=== PATIENT | male | born 1950 | race Caucasian/White ===

== ENCOUNTER 2023-06-27 11:13 | Emergency (ER) | payer MEDICARE, OTHER, SELFPAY ==
[2023-06-27 11:20] VITALS: BP 166/72; BMI 26.1
[2023-06-27] MEDS: NORCO 5/325 1 TABLET PO (13:05)
--- NOTE | 2023-06-27 13:12 | ED.MUSCINJ ---
HPI-Injury
General
Chief Complaint: Fall
Source: patient
Exam Limitations: none
Time Seen by Provider: 06/27/23 12:07
Nursing documentation reviewed up to this point in time: agreed with
Travel History
Have you had any contact with someone who has COVID-19?: No
Do you have any symptoms of coronavirus? Fever > 100 degrees, chills, cough, shortness of breath, sore throat, loss of taste or smell, muscle aches, or headache?: No
History of Present Illness-Injury
Is this injury a work related problem?: No
Is pt an associate of [facility]?: No
Initial Injury comments:
Patient to ED s/p fall. States he was carrying groceries up stairs and fell back. Hit head on driveway. No LOC. Complains of pain to his right shoulder and wrist. Able to get self up and ambulate into home. Brought to ED by family for eval.
Injury occurred just GERIATRIC AIDE
Past History
Past History
ED Past Medical History: Hypercholesterolemia and NIDDM
Review of Systems
Review of Systems
Allergies reviewed?: Yes
All Other Systems: ROS reviewed and negative except as documented in HPI and ROS
Constitutional: Reports no symptoms
EENT: Reports no symptoms
Respiratory: Reports no symptoms
Cardiac: Reports no symptoms
ABD/GI: Reports no symptoms
Musculoskeletal: Reports joint pain (Pain to right shoulder, right wrist.)
Skin: Reports no symptoms
Neurological: Reports no symptoms
Psychiatric: Reports no symptoms
Musculoskeletal Injury Exam
Musculoskeletal Injury Exam
Right Shoulder:
Pain with Movement?: Moderate
Tender to palpation?: Moderate
Soft tissue swelling?: Moderate
External deformity and angulation?: None
Joint effusion?: None
Contusion?: Moderate
Hematoma-local bleeding into tissue?: Moderate
Strain- Sprain- Tear (Connective tissue injury)?: Moderate
Crepitus with movement?: No
Joint instability?: No
Malalignment/deformity?: No
Range of motion: Limited
Distal skin color and temperature: normal-warm & good color
Capillary Refill: normal
Normal distal neurovascular exam?: Yes
Peripheral Pulses: radial (right): 3+
Right Wrist:
Pain with Movement?: Moderate
Tender to palpation?: Moderate
Soft tissue swelling?: None
External deformity and angulation?: None
Joint effusion?: None
Contusion?: None
Hematoma-local bleeding into tissue?: None
Strain- Sprain- Tear (Connective tissue injury)?: Moderate
Crepitus with movement?: No
Joint instability?: No
Malalignment/deformity?: No
Range of motion: Limited
Distal skin color and temperature: normal-warm & good color
Capillary Refill: normal
Normal distal neurovascular exam?: Yes
Phy Exam
General Physical Exam
General Presentation: well appearing and mild distress
General age: appears stated age
General Skin: warm and dry
General Habitus: normal
General Mental: alert
General Hydration: appears well hydrated
Neurological Exam
Neurological Exam: alert, oriented x3, CN II-XII intact, no motor deficits, no sensory deficits and speech normal
Angella Coma Scale
Eye Opening: Spontaneous
Verbal Response: Oriented
Motor Response: Obeys Commands
GCS Total Score: 15
Musculoskeletal Exam
Musculoskeletal Exam: neuro vasc intact
Skin Exam
Skin Exam: normal color, warm/dry and no rash
Psychiatric Exam
Psychiatric Exam: normal mood/affect
Injury Course
Orders/Labs/Results
Orders:
Orders
06/27/23 12:11
Shoulder, Right, Trauma [CR Shoulder, Trauma - Right] Urgent
Comment:
Reason For Exam: pain and deformity after a fall
06/27/23 12:14
Wrist, Right 3 Views [CR Wrist - Right Min 3 Views] Urgent
Comment:
Reason For Exam: pain after a fall
06/27/23 12:59
Sling Right-Treatment ONCE
Hydrocodone 5/APAP 325 [[place] 5/325] 1 tablet PO NOW STA
*Radiology
Radiology exam reviewed: radiology read reviewed
*Pulse Oximetry
Patient hypoxic: no
*Critical Care Note
Total Time (30-74mins, 75-104mins- exclusive of procedures): Not Applicable
ED Attending Note
-
Portions of this chart may have been created with voice recognition software.� Occasional wrong word or��sound alike� substitutions may have occurred due to the inherent limitations of voice recognition software.
Discharge Plan
Departure
Patient Disposition: Home (Routine Discharge)
Date of Disposition: 06/27/23
Time of Disposition: 13:00
Patient with high blood pressure during this ER visit?: No
Condition: Good
Covid-19: Not Applicable
Discharge Problem:
Contusion of right shoulder, Right wrist sprain
Instructions: Contusion (DC), Preventing falls in adults, Shoulder Sprain (DC), Using Cold for Pain
Prescriptions:
New
hydrocodone-acetaminophen 5-325 mg tablet
1 tab PO Q4H PRN (Reason: Pain) Qty: 14 0RF
Referrals:
Miguel Vallejo MD [Family Provider] -
Jak Ralph MD [Active] - Call in 1-3 days for appt
Interventions
Interventions:
*Risk Screen - Suicide Last Done: 06/27/23 11:20
*Neglect/Abuse Screening Last Done: 06/27/23 11:20
ED- Fall Risk Assessment Last Done: 06/27/23 12:40
*ED COVID-19 Vaccine History Last Done: 06/27/23 11:20
ED-Musculoskeletal Assessment Last Done: 06/27/23 12:40
ED- Neurological Assessment Last Done: 06/27/23 12:40
ED-Skin Assessment Last Done: 06/27/23 12:40
Discharge Date and Time
Print Language: BERMUDIAN
== END 2023-06-27 13:35 | disposition home or self-care (01) ==
LOC: EMR 11:13
PROVIDERS: EMERGENCY PHYSICIAN Emergency Medicine; FAMILY PHYSICIAN Family Medicine
DX: S40.011A Contusion of right shoulder, initial encounter (principal); S63.501A Unspecified sprain of right wrist, initial encounter; W10.9XXA Fall (on) (from) unspecified stairs and steps, initial encounter; E78.00 Pure hypercholesterolemia, unspecified; E11.9 Type 2 diabetes mellitus without complications; Z88.6 Allergy status to analgesic agent; Z88.8 Allergy status to other drugs, medicaments and biological substances; Z91.048 Other nonmedicinal substance allergy status
CPT/HCPCS: 99284; 73030; 73110

== ENCOUNTER → 2023-08-10 06:12 | Day surgery (SDC) | payer MEDICARE, OTHER, SELFPAY ==
--- NOTE | 2023-08-07 06:50 | CM ---
Patient is scheduled for an elective R TSA on - he is a same day patient. Spoke with patient and his prior to surgery. Introduced role of Orthopedic Navigator. Patient and his live in a two story home. They live on the first floor and
their daughter lives on the second. Currently he functions independently. He does not use any DME and has never had VN services.
Discussed orthopedic program and post surgical plans. Patient will return home when directed by surgeon. Reviewed MD follow up and transition to outpatient therapy. Patient is in agreement with tentative plan and states that his son will be with him
on the day of surgery and then his will be home with him and can assist if needed.
Plan: Orthopedic Navigator will be involved in the care of patient after surgery and will reassess discharge needs at that time.
[2023-08-07 12:11] VITALS: BMI 25.4
[2023-08-07 13:47] LABS: Hemoglobin 11.9 g/dL (13.0-18.0); Mean Corpuscular Hgb 29.9 pg (27.0-31.0); Mean Corpuscular Volume 87.9 fL (80.0-94.0); Platelet Count 226 10^3/uL (130-400); Red Blood Cell Count 3.98 10^6/uL (4.70-6.10); Red Cell Dist. Width 13.1 % (11.5-14.5); White Blood Cell Count 5.1 10^3/uL (4.8-10.8)
[2023-08-07 14:32] LABS: Glycohemoglobin (HgbA1c) 7.1 % (4.0-5.6)
[2023-08-07 15:05] LABS: ALT (SGPT) 23 U/L (0-50); AST (SGOT) 27 U/L (17-59); Albumin 4.6 g/dl (3.5-5.0); Alkaline Phosphatase 112 U/L (38-126); Blood Urea Nitrogen 29 mg/dl (9-20); Calcium 9.7 mg/dl (8.4-10.2); Carbon Dioxide 26 mmol/L (22-30); Chloride 101 mmol/L (98-107); Estimated Creatinine Clearance 32 ml/min; Glucose 108 mg/dl (70-99); Potassium 4.6 mmol/L (3.5-5.1); Sodium 139 mmol/L (135-145); Total Bilirubin 0.5 mg/dl (0.2-1.3); Total Protein 7.4 g/dl (6.3-8.2)
--- NOTE | 2023-08-07 16:10 | PTCARENOTE ---
Hgb 11.9, GFR 39.5, creatinine 1.8 and hgb A1c 7.1 were all collected today; was notified of all results.
[2023-08-10] VITALS (7 sets, daily range): BP systolic 105–153; BP diastolic 63–78; BMI 25.4
[2023-08-10 06:59] LABS: Glucose - Point of Care 158 mg/dl (70-99)
[2023-08-10] MEDS: BACTROBAN NASAL 1 GRAM NASAL (07:05)
[2023-08-10] MEDS: NORMOSOL-R 1000 IV (07:06)
[2023-08-10 10:00] LABS: Glucose - Point of Care 136 mg/dl (70-99)
[2023-08-10] MEDS: ANCEF 5 IV (11:59)
== END ==
LOC: SDS 06:12
PROVIDERS: ATTENDING PHYSICIAN Orthopaedic Surgery Hand Surgery; FAMILY PHYSICIAN Family Medicine
DX: M12.811 Other specific arthropathies, not elsewhere classified, right shoulder (principal)
CPT/HCPCS: 23472; 36415; 73020; 80053; 82962; 83036; 85027; 86850; 86900; 86901; 87070; 93005; C1713; C1776

== ENCOUNTER 2024-07-20 10:04 | Emergency (ER) | payer MEDICARE, OTHER, SELFPAY ==
[2024-07-20 10:05] VITALS: BP 155/88
[2024-07-20 10:18] VITALS: BMI 25.6
--- NOTE | 2024-07-20 10:30 | ED.GENMED ---
History of Present Illness
General
Chief Complaint: Back Pain
Source: patient
Exam Limitations: none
Time Seen by Provider: 07/20/24 10:18
History of Present Illness
History of Present Illness:
74-year-old male presents complaining of ongoing right lower back pain over the past several weeks. It hurts to move or change positions. Does not radiate down his leg. No associated bowel or bladder dysfunction. No dysuria or hematuria. No
rash. He denies associated fever. No known injury. He has been using Lidoderm patches without relief. He has been taking Tylenol which seems to help however he was taking a gram every 4 hours and stopped taking this. He gets an angioedema
reaction to any NSAIDs. He is not anticoagulated. No other complaints
Past History
Past History
ED Past Medical History: Hypercholesterolemia and NIDDM
Phy Exam
Physical Exam
Physical Exam:
General: Well-appearing male no acute respiratory distress
HEENT: Normocephalic atraumatic
Heart: Regular rate and rhythm
Lungs: Clear no wheeze
Musculoskeletal exam mild tenderness over the right lumbosacral junction. Midline of the lumbar spine nontender good range of motion bilateral lower extremities
Vascular: 2+ DP pulse bilateral feet
Neurologic: Good sensation and strength to lower extremities
Course
Orders/Labs/Results
Orders:
Orders
07/20/24 10:29
CR Lumbar Spine 2 Or 3 Views Urgent
Comment:
Reason For Exam: back pain
07/20/24 10:30
Diazepam [Valium] 5 mg PO NOW STA
Vital Signs
Initial and Last Documented VS:
Initial Vital Signs
Temp Pulse Resp BP Pulse Ox
98.1 F 117 20 155/88 99
07/20/24 10:05 07/20/24 10:05 07/20/24 10:05 07/20/24 10:05 07/20/24 10:05
Last Documented Vital Signs
Temp Pulse Resp BP Pulse Ox
98.1 F 117 20 155/88 99
07/20/24 10:05 07/20/24 10:05 07/20/24 10:05 07/20/24 10:05 07/20/24 10:05
MDM/Problems Addressed
Differential Diagnosis Includes:
Low back pain. Consider muscular strain versus degenerative disc disease versus radiculopathy. No red flags to suggest cauda equina. No fever to suggest infectious source
X-rays pending. Patient cannot tolerate NSAIDs secondary to an angioedema reaction. Seems likely muscular. Will try muscle relaxer
*Critical Care Note
Total Time (30-74mins, 75-104mins- exclusive of procedures): Not Applicable
Update Note
Update Note:
X-rays consistent with degenerative disease with spondylolisthesis L2-L3. Patient has pain on the right side of his back that radiates slightly to the waist. Question radicular pain versus muscular pain. Will continue with muscle relaxers and a
steroid medicine at home will be referred to back pain specialist. No indication for admission. Stable for discharge
ED Attending Note
-
Portions of this chart may have been created with voice recognition software.� Occasional wrong word or��sound alike� substitutions may have occurred due to the inherent limitations of voice recognition software.
Discharge Plan
Departure
Patient Disposition: Home (Routine Discharge)
Date of Disposition: 07/20/24
Time of Disposition: 14:11
Patient with high blood pressure during this ER visit?: No
Discharge Problem:
Back pain
Instructions: Low Back Pain (DC)
Prescriptions:
New
diazepam [Valium] 5 mg tablet
5 mg PO BID PRN (Reason: muscle spasm) Qty: 10 0RF
prednisone 10 mg Tablet
See Rx Instructions .ROUTE .COMPLEX Qty: 30 0RF
Rx Instructions:
Take By Mouth:
40 mg daily x3 days, 30 mg daily x3 days,
20 mg daily x3 days, 10 mg daily x3 days.
No Action
atorvastatin 20 mg Tablet
20 mg PO HS
cyanocobalamin (vitamin B-12) [Vitamin B-12] 1,000 mcg Tablet
1,000 mcg PO MOTH
amlodipine 5 mg Tablet
5 mg PO DAILY
pramipexole 0.5 mg Tablet
0.5 mg PO HS
ferrous sulfate [Iron (ferrous sulfate)] 325 mg (65 mg iron) Tablet
325 mg PO MOWEFR
metformin 1,000 mg Tablet
1,000 mg PO BID
cholecalciferol (vitamin D3) [Vitamin D3] 125 mcg (5,000 unit) Tablet
125 mcg PO DAILY
gabapentin 600 mg Tablet Extended Release 24 Hr
600 mg PO DAILY
mupirocin 2 % ointment
1 applic intranasal BID Qty: 1 0RF
Referrals:
Miguel Vallejo MD [Family Provider] -
Carlos Zaldivar MD [Active] -
Activity Restrictions/Additional Instructions:
Continue with warm compresses. Take steroid and muscle relaxer as directed. Return if worse otherwise follow-up with back pain specialist
Interventions
Interventions:
*Risk Screen - Suicide Last Done: 07/20/24 10:21
*Neglect/Abuse Screening Last Done: 07/20/24 10:18
*ED- Fall Risk Assessment Last Done: 07/20/24 10:20
*ED COVID-19 Vaccine History Last Done: 07/20/24 10:20
ED-Musculoskeletal Assessment Last Done: 07/20/24 10:22
Discharge Date and Time
Print Language: GUATEMALAN
[2024-07-20] MEDS: VALIUM 5 MG PO (10:38)
== END 2024-07-20 14:30 | disposition home or self-care (01) ==
LOC: EMR 10:04
PROVIDERS: EMERGENCY PHYSICIAN Emergency Medicine; FAMILY PHYSICIAN Family Medicine
DX: M54.50 Low back pain, unspecified (principal); E11.9 Type 2 diabetes mellitus without complications; E78.00 Pure hypercholesterolemia, unspecified; M43.16 Spondylolisthesis, lumbar region; Z79.84 Long term (current) use of oral hypoglycemic drugs; Z88.6 Allergy status to analgesic agent; Z88.1 Allergy status to other antibiotic agents; Z88.2 Allergy status to sulfonamides; Z88.8 Allergy status to other drugs, medicaments and biological substances; Z91.048 Other nonmedicinal substance allergy status
CPT/HCPCS: 99283; 72100

== ENCOUNTER 2024-07-26 08:14 | Emergency (ER) | payer MEDICARE, OTHER, SELFPAY ==
[2024-07-26 08:36] VITALS: BP 145/86
--- NOTE | 2024-07-26 11:09 | ED.GENMED ---
History of Present Illness
General
Chief Complaint: Back Pain
Source: patient
Time Seen by Provider: 07/26/24 10:56
History of Present Illness
History of Present Illness:
74-year-old male presents to the emergency room complaining of continued pain in his right low back which radiates to his leg somewhat. Patient states that he began having pain fairly suddenly couple weeks ago. No specific injury. Pain seemed to
begin after he was hospitalized overnight at [facility] for 'dehydration'. Patient denies fever, chills, nausea, vomiting or diarrhea. He denies any bowel or bladder dysfunction. He has no weakness numbness or tingling in his legs. Patient states
he has difficulty walking because of pain particular when he stands. His legs do not give out from under him. Patient's been taking Tylenol for pain. He had angioedema with NSAIDs previously. He was prescribed Valium and a tapering course of
prednisone at his last visit. He is taking the prednisone. His insurance company did not approve Valium.
Past History
Past History
ED Past Medical History: Hypercholesterolemia and NIDDM
Phy Exam
Physical Exam
Physical Exam:
General: Awake, Alert, Oriented X3. No acute distress.
Vitals: unremarkable
Head: Atraumatic
Eyes: Pupils equal, EOMI
Throat: Airway intact, no exudates
Neck: Trachea midline
Lungs: Clear and equal b/l
Heart: Regular rate, no murmurs
Abd: Soft, Nontender, No pulsatile mass
Back: No pain to palpation or percussion along the thoracic or lumbar spine. There is tenderness palpation over the right sacroiliac region.
Neuro: Nonfocal
Skin: Warm, dry, no rash
Extremities: pulses equal b/l, no edema
Course
Orders/Labs/Results
Orders:
Orders
07/26/24 11:07
0.9% Sodium Chloride 1000 ml [Nss] 1,000 ml IV BOLUS
HYDROmorphone [Dilaudid] 0.5 mg IV NOW STA
07/26/24 11:41
CRP [C-Reactive Protein] Urgent
Complete Blood Count/With Diff Urgent
Comprehensive Metabolic Panel Urgent
Magnesium Urgent
Sed Rate [Erythrocyte Sed Rate] Urgent
07/26/24 12:38
Urinalysis Reflex To Culture Urgent
Date Specimen was Collected: 07/26/24
Time Specimen was Collected: 12:09
Urine Microscopic Reflex Cult Urgent
07/26/24 12:51
CT Abd/pelvis W Iv Cont Urgent
Comment:
Reason For Exam: back/right flank pain
Abnormal Lab Results
07/26/24 07/26/24
11:41 12:38
RBC 4.14 L 10^6/uL
(4.70-6.10)
Hgb 12.4 L g/dL
(13.0-18.0)
Hct 35.9 L %
(39.0-52.0)
Abs Immat Gran (auto) 0.1 H 10^3/uL
(0-0.05)
Absolute Neuts (auto) 9.1 H 10^3/uL
(1.4-6.5)
Absolute Lymphs (auto) 0.7 L 10^3/uL
(1.2-3.4)
Immature Gran % 1.0 H %
(0-0.5)
Neutrophils % 88.9 H %
(42.2-75.2)
Lymphocytes % 6.7 L %
(20.5-51.1)
ESR 32 H mm/hour
(0-20)
Potassium 5.2 H mmol/L
(3.5-5.1)
BUN 41 H mg/dl
(9-20)
Creatinine 1.7 H mg/dL
(0.7-1.3)
Glucose 275 H mg/dl
(70-99)
Urine Glucose 2+ A
(Negative)
Urine Albumin (Reflex) 1+ A
(Neg - Trace)
07/26/24 11:41
07/26/24 11:41
Vital Signs
Initial and Last Documented VS:
Initial Vital Signs
Temp Pulse Resp BP Pulse Ox
98.6 F 111 16 145/86 98
07/26/24 08:36 07/26/24 08:36 07/26/24 08:36 07/26/24 08:36 07/26/24 08:36
Last Documented Vital Signs
Temp Pulse Resp BP Pulse Ox
98.6 F 85 18 135/74 98
07/26/24 08:36 07/26/24 13:12 07/26/24 13:12 07/26/24 13:12 07/26/24 13:12
MDM/Problems Addressed
Differential Diagnosis Includes:
Lumbar sacral strain, sacroiliac irritation, lumbar sacral muscle spasm, zoster, kidney stone
MDM/Problems Addressed:
Patient presents with pain in his right low back actually more over the sacroiliac region. Pain is worse with movement. Labs show normal urinalysis, essentially normal CBC, patient has elevated BUN and creatinine but this is consistent with
previous measurements. Glucose elevated to 75. C-reactive protein is normal. Sed rate is consistent with his age. CT shows no acute intra-abdominal or spinal abnormalities. No indication for hospitalization. Patient feels better after IV
Dilaudid here. He cannot take NSAIDs and so we will discharge him with a prescription for oxycodone but encouraged him to follow-up with [facility] pain and spine.
*Radiology
Radiology exam reviewed: radiology read reviewed
*Pulse Oximetry
Patient hypoxic: no
*Critical Care Note
Total Time (30-74mins, 75-104mins- exclusive of procedures): Not Applicable
ED Attending Note
-
Portions of this chart may have been created with voice recognition software.� Occasional wrong word or��sound alike� substitutions may have occurred due to the inherent limitations of voice recognition software.
Discharge Plan
Departure
Patient Disposition: Home (Routine Discharge)
Date of Disposition: 07/26/24
Time of Disposition: 15:18
Patient with high blood pressure during this ER visit?: No
Condition: Good
Discharge Problem:
Back pain, Sacro-iliac pain
Instructions: Low Back Pain (DC)
Prescriptions:
New
oxycodone 5 mg tablet
5 mg PO Q6H PRN (Reason: Pain) Qty: 20 0RF
No Action
atorvastatin 20 mg Tablet
20 mg PO HS
cyanocobalamin (vitamin B-12) [Vitamin B-12] 1,000 mcg Tablet
1,000 mcg PO MOTH
amlodipine 5 mg Tablet
5 mg PO DAILY
pramipexole 0.5 mg Tablet
0.5 mg PO HS
ferrous sulfate [Iron (ferrous sulfate)] 325 mg (65 mg iron) Tablet
325 mg PO MOWEFR
metformin 1,000 mg Tablet
1,000 mg PO BID
cholecalciferol (vitamin D3) [Vitamin D3] 125 mcg (5,000 unit) Tablet
125 mcg PO DAILY
gabapentin 600 mg Tablet Extended Release 24 Hr
600 mg PO DAILY
mupirocin 2 % ointment
1 applic intranasal BID Qty: 1 0RF
diazepam [Valium] 5 mg tablet
5 mg PO BID PRN (Reason: muscle spasm) Qty: 10 0RF
prednisone 10 mg Tablet
See Rx Instructions .ROUTE .COMPLEX Qty: 30 0RF
Rx Instructions:
Take By Mouth:
40 mg daily x3 days, 30 mg daily x3 days,
20 mg daily x3 days, 10 mg daily x3 days.
Referrals:
Og Alfaro MD [Active] -
Miguel Vallejo MD [Family Provider] -
Interventions
Interventions:
*Risk Screen - Suicide Last Done: 07/26/24 08:36
*General Assessment Last Done: 07/26/24 11:38
*Neglect/Abuse Screening Last Done: 07/26/24 08:36
*ED- Fall Risk Assessment Last Done: 07/26/24 11:38
*ED COVID-19 Vaccine History Last Done: 07/26/24 11:38
*Nursing Disposition Last Done: 07/26/24 15:36
ED-Musculoskeletal Assessment Last Done: 07/26/24 11:40
Discharge Date and Time
Discharge Date/Time: 07/26/24 15:37
Print Language: GUYANESE
[2024-07-26] MEDS: NSS 1000 IV (11:46)
[2024-07-26] MEDS: DILAUDID 0.5 MG IV (11:52)
[2024-07-26 11:57] LABS: % Basophils 0.2 % (0-2); % Lymphocytes 6.7 % (20.5-51.1); % Monocytes 3.2 % (1.7-9.3); % Neutrophils 88.9 % (42.2-75.2); Absolute Immature Granulocytes 0.1 10^3/uL (0-0.05); Absolute Lymphocytes 0.7 10^3/uL (1.2-3.4); Absolute Monocytes 0.3 10^3/uL (0.1-0.6); Absolute Neutrophils 9.1 10^3/uL (1.4-6.5); Hematocrit 35.9 % (39.0-52.0); Hemoglobin 12.4 g/dL (13.0-18.0); Mean Corp Hgb Conc. 34.5 g/dL (33.0-37.0); Mean Corpuscular Volume 86.7 fL (80.0-94.0); Mean Platelet Volume 9.2 fL (7.4-10.4); Nucleated Red Blood Cells % 0 % (-); Platelet Count 254 10^3/uL (130-400); Red Blood Cell Count 4.14 10^6/uL (4.70-6.10); Red Cell Dist. Width 13.1 % (11.5-14.5); White Blood Cell Count 10.2 10^3/uL (4.8-10.8)
[2024-07-26 12:07] LABS: AST (SGOT) 20 U/L (17-59); Albumin 4.8 g/dl (3.5-5.0); Alkaline Phosphatase 114 U/L (38-126); Blood Urea Nitrogen 41 mg/dl (9-20); Carbon Dioxide 27 mmol/L (22-30); Chloride 98 mmol/L (98-107); Glucose 275 mg/dl (70-99); Magnesium 1.6 mg/dl (1.6-2.3); Potassium 5.2 mmol/L (3.5-5.1); Sodium 137 mmol/L (135-145); Total Bilirubin 0.6 mg/dl (0.2-1.3); Total Protein 7.7 g/dl (6.3-8.2); eGFR 42.04
[2024-07-26 12:55] LABS: ALT (SGPT) < 30 U/L (0-50)
[2024-07-26 12:58] LABS: Urine Albumin 1+ (Neg - Trace); Urine Bilirubin Negative (Negative); Urine Character Clear (Clear); Urine Color Yellow; Urine Glucose 2+ (Negative); Urine Ketone Negative (Negative); Urine Leukocyte Negative (Negative); Urine Nitrite Negative (Negative); Urine Occult Blood Negative (Negative); Urine Urobilinogen Negative (Neg - 1+)
[2024-07-26 13:12] VITALS: BP 135/74
[2024-07-26 13:56] LABS: Urine Red Blood Cell 0-2 /HPF (0-2); Urine White Cell 0-2 /HPF (0-5)
[2024-07-26 13:57] LABS: Urine Squamous Cell 0-2 /LPF (Few)
[2024-07-26 14:27] LABS: Erythrocyte Sed Rate 32 mm/hour (0-20)
== END 2024-07-26 15:37 | disposition home or self-care (01) ==
LOC: EMR 08:14
PROVIDERS: EMERGENCY PHYSICIAN Emergency Medicine; FAMILY PHYSICIAN Family Medicine
DX: M54.9 Dorsalgia, unspecified (principal); M53.3 Sacrococcygeal disorders, not elsewhere classified; E78.00 Pure hypercholesterolemia, unspecified; E11.9 Type 2 diabetes mellitus without complications
CPT/HCPCS: 99284; 96374; 96361; 74177; 80053; 81003; 81015; 83735; 85025; 85652; 86140; Q9967

== ENCOUNTER 2024-08-28 19:48 | Emergency (ER) | payer OTHER, MEDICARE, SELFPAY ==
[2024-08-28 19:53] VITALS: BP 133/70
[2024-08-28 21:11] VITALS: BP 136/72
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
[2024-08-28 23:47] VITALS: BP 144/77
[2024-08-28 23:56] LABS: % Basophils 0.3 % (0-2); % Eosinophils 0.1 % (0-6); % Immature Granulocytes 0.8 % (0-0.5); % Lymphocytes 12.2 % (20.5-51.1); % Monocytes 12.8 % (1.7-9.3); % Neutrophils 73.8 % (42.2-75.2); Absolute Immature Granulocytes 0.1 10^3/uL (0-0.05); Absolute Lymphocytes 0.9 10^3/uL (1.2-3.4); Absolute Neutrophils 5.5 10^3/uL (1.4-6.5); Hematocrit 28.1 % (39.0-52.0); Mean Corp Hgb Conc. 35.6 g/dL (33.0-37.0); Mean Corpuscular Volume 84.4 fL (80.0-94.0); Mean Platelet Volume 8.9 fL (7.4-10.4); Nucleated Red Blood Cells % 0 % (-); Platelet Count 196 10^3/uL (130-400); Red Blood Cell Count 3.33 10^6/uL (4.70-6.10); Red Cell Dist. Width 12.9 % (11.5-14.5); White Blood Cell Count 7.4 10^3/uL (4.8-10.8)
[2024-08-29] VITALS: BP 139/72
[2024-08-29] MEDS: TYLENOL 650 MG PO (00:06)
[2024-08-29] MEDS: NSS 1000 IV (00:08)
[2024-08-29 00:10] LABS: ALT (SGPT) 22 U/L (0-50); AST (SGOT) 23 U/L (17-59); Alkaline Phosphatase 106 U/L (38-126); Blood Urea Nitrogen 33 mg/dl (9-20); Calcium 8.4 mg/dl (8.4-10.2); Carbon Dioxide 24 mmol/L (22-30); Chloride 96 mmol/L (98-107); Glucose 239 mg/dl (70-99); Potassium 3.6 mmol/L (3.5-5.1); Sodium 130 mmol/L (135-145); Total Bilirubin 1.1 mg/dl (0.2-1.3); Total Protein 6.8 g/dl (6.3-8.2); eGFR 32.62
[2024-08-29 00:40] LABS: COVID-19 Antigen Negative (Negative)
[2024-08-29 01:00] VITALS: BP 135/80
[2024-08-29 02:00] VITALS: BP 133/70
[2024-08-29 02:21] LABS: Urine Albumin 2+ (Neg - Trace); Urine Bilirubin Negative (Negative); Urine Character Clear (Clear); Urine Color Yellow; Urine Glucose Negative (Negative); Urine Ketone Negative (Negative); Urine Leukocyte Negative (Negative); Urine Nitrite Negative (Negative); Urine Occult Blood 2+ (Negative); Urine Urobilinogen Negative (Neg - 1+)
[2024-08-29] MEDS: ZITHROMAX 500 MG PO (03:02)
[2024-08-29 03:16] LABS: Urine Amorphous Seen; Urine Squamous Cell 0-2 /LPF (Few)
[2024-08-29 03:17] LABS: Urine Bacteria Few (Negative); Urine White Cell 0-2 /HPF (0-5)
== END 2024-08-29 03:10 | disposition home or self-care (01) ==
LOC: EMR 19:48
PROVIDERS: EMERGENCY PHYSICIAN Student in an Organized Health Care Education/Training Program; FAMILY PHYSICIAN Family Medicine
DX: S00.81XA Abrasion of other part of head, initial encounter (principal); R41.0 Disorientation, unspecified; R05.9 Cough, unspecified; F07.81 Postconcussional syndrome; V47.0XXA Car driver injured in collision with fixed or stationary object in nontraffic accident, initial encounter; Y92.410 Unspecified street and highway as the place of occurrence of the external cause; Z11.52 Encounter for screening for COVID-19; E11.22 Type 2 diabetes mellitus with diabetic chronic kidney disease; N18.9 Chronic kidney disease, unspecified; E78.00 Pure hypercholesterolemia, unspecified; I12.9 Hypertensive chronic kidney disease with stage 1 through stage 4 chronic kidney disease, or unspecified chronic kidney disease; Z79.84 Long term (current) use of oral hypoglycemic drugs; Z88.6 Allergy status to analgesic agent; Z88.1 Allergy status to other antibiotic agents; Z88.2 Allergy status to sulfonamides; Z88.8 Allergy status to other drugs, medicaments and biological substances; Z91.048 Other nonmedicinal substance allergy status
CPT/HCPCS: 70450; 71046; 80053; 81003; 81015; 85025; 87502; 87811; 93005; 96360; 96361; 99284